=== PATIENT | female | born 1995 | race Caucasian/White ===

== ENCOUNTER 2022-10-02 18:09 | Emergency (ER) | payer SELFPAY ==
[~2022-10-02] VITALS: Ht 167.6 cm; Wt 50.0 kg
[2022-10-02 18:12] VITALS: BP 111/66
== END 2022-10-03 01:40 | disposition left against medical advice (07) ==
LOC: ER 22:01
DX: Z53.21 Procedure and treatment not carried out due to patient leaving prior to being seen by health care provider (principal)